=== PATIENT | female | born 1945 | race Caucasian/White ===

== ENCOUNTER → 2018-05-25 | Outpatient (CLI) | payer MEDICARE, OTHER ==
[~2018-05-25] MED LIST: ACET325; ASPI81CH PO; Acetaminophen325 M1 PO; IBUP400 PO; LOSA50 PO; Metformin HCl500 MG PO
[2018-05-25 14:54] LABS: Bun/Creatinine Ratio 12.7 (12.0-20.0); Calcium, Blood 9.7 mg/dL (8.5-10.1); Creatinine, Blood 1.18 mg/dL (0.40-1.00); Potassium, Blood 4.5 mmol/L (3.5-5.5)
== END | disposition home or self-care (01) ==
LOC: LAB SHORT 13:49 → LAB 13:49
PROVIDERS: Hospitalist
DX: E11.51 Type 2 diabetes mellitus with diabetic peripheral angiopathy without gangrene (principal); G93.41 Metabolic encephalopathy
CPT/HCPCS: 80048; 85651

== ENCOUNTER 2018-09-10 00:40 | Emergency (ER) | payer OTHER, MEDICARE ==
[~2018-09-10] VITALS: Ht 167.6 cm; Wt 81.7 kg
[2018-09-10 01:56] LABS: Albumin, Blood 3.1 g/dL (3.4-5.0); Bilirubin, Total 0.2 mg/dL (0.1-1.0); Calcium, Blood 9.1 mg/dL (8.5-10.1); Creatinine, Blood 1.94 mg/dL (0.40-1.00); Potassium, Blood 4.2 mmol/L (3.5-5.5); Total Protein, Blood 6.1 g/dL (6.4-8.2)
== END 2018-09-10 02:13 | disposition short-term general hospital (02) ==
LOC: ER 00:40
PROVIDERS: Emergency Medicine
DX: S02.2XXA Fracture of nasal bones, initial encounter for closed fracture (principal); S02.19XA Other fracture of base of skull, initial encounter for closed fracture; S02.40CA Maxillary fracture, right side, initial encounter for closed fracture; S02.40EA Zygomatic fracture, right side, initial encounter for closed fracture; S01.01XA Laceration without foreign body of scalp, initial encounter; Z88.0 Allergy status to penicillin; Z79.899 Other long term (current) drug therapy; Z79.82 Long term (current) use of aspirin; Z79.84 Long term (current) use of oral hypoglycemic drugs; V49.9XXA Car occupant (driver) (passenger) injured in unspecified traffic accident, initial encounter
CPT/HCPCS: 12006; 36415; 70450; 70486; 71260; 72125; 74177; 80053; 96374-59; 96375-59; 99285-25; J1170; J2405; J7030; Q9967

== ENCOUNTER 2018-09-23 14:44 | Emergency (ER) | payer MEDICARE, OTHER ==
[~2018-09-23] VITALS: Ht 167.6 cm; Wt 99.8 kg
[2018-09-23 14:59] LABS: Source, Urine Catheter
[2018-09-23 15:04] LABS: Bilirubin, Urine Neg (Neg); Blood, Urine 5+ (Neg); Glucose Qualitative, Urine Neg (Neg); Ketones, Urine 2+ (Neg); Leukocyte Esterase, Urine 3+ (Neg); Nitrite, Urine Pos (Neg); Protein, Urine 3+ (Neg); Urobilinogen, Urine NORM (Normal)
[2018-09-23 15:10] LABS: Appearance, Urine Cloudy (Clear); Color, Urine Yellow (P-Yellow); White Blood Cells, Urine TNTC /hpf (0-5)
[2018-09-23 15:11] LABS: Red Blood Cells, Urine 50-100 /hpf (0-2)
[2018-09-23 15:12] LABS: Bacteria Mod /hpf; Squamous Epithelial Cells Not Seen /hpf (Few)
[2018-09-23] MEDS ORDERED: CEFP200 PO (15:23)
== END 2018-09-23 15:58 | disposition home or self-care (01) ==
LOC: ER 14:44
PROVIDERS: Emergency Medicine
DX: N39.0 Urinary tract infection, site not specified (principal); R33.9 Retention of urine, unspecified; Z79.899 Other long term (current) drug therapy; Z79.82 Long term (current) use of aspirin; Z79.84 Long term (current) use of oral hypoglycemic drugs
CPT/HCPCS: 51702; 81001; 87077; 87086; 87186; 99284; A9270-GY

== ENCOUNTER 2018-10-22 22:42 | Emergency (ER) | payer OTHER, MEDICARE ==
[~2018-10-22] VITALS: Ht 167.6 cm; Wt 90.7 kg
[~2018-10-22 22:42] MED LIST changes: +CEFP200 PO
[2018-10-23] MEDS ORDERED: Ocuflox5 ML RIGHTEYE (01:25)
[2018-10-23] MEDS ORDERED: Cleocin HCl150 MG PO (01:25)
== END 2018-10-23 02:15 | disposition home or self-care (01) ==
LOC: ER 22:42
DX: J34.0 Abscess, furuncle and carbuncle of nose (principal); Z88.0 Allergy status to penicillin; Z88.2 Allergy status to sulfonamides; Z88.1 Allergy status to other antibiotic agents; Z79.899 Other long term (current) drug therapy; Z79.82 Long term (current) use of aspirin; E11.9 Type 2 diabetes mellitus without complications; Z79.84 Long term (current) use of oral hypoglycemic drugs
CPT/HCPCS: 70450; 70486; 99283-25

== ENCOUNTER → 2018-12-21 | Outpatient (CLI) | payer MEDICARE, OTHER ==
[~2018-12-21] MED LIST changes: +Cleocin HCl150 MG PO; +Ocuflox5 ML RIGHTEYE
[2018-12-21 18:39] LABS: International Normalized Ratio 0.94
[2018-12-21 19:04] LABS: BASOPHILS ABSOLUTE AUTO 0.05 K/mm3 (0.00-0.23); BASOPHILS PERCENT AUTO 1 % (0-2); EOSINOPHILS ABSOLUTE AUTO 0.09 K/mm3 (0.00-0.68); EOSINOPHILS PERCENT AUTO 1 % (0-6); Hematocrit 37.5 % (33.0-51.0); Hemoglobin 12.8 g/dL (11.5-16.0); IMMATURE GRAN ABSOLUTE AUTO 0.06 K/mm3 (0.00-0.10); IMMATURE GRAN PERCENT AUTO 1 % (0-1); LYMPHOCYTES ABSOLUTE AUTO 2.79 K/mm3 (0.84-5.20); LYMPHOCYTES PERCENT AUTO 26 % (21-46); MONOCYTES ABSOLUTE AUTO 0.65 K/mm3 (0.16-1.47); MONOCYTES PERCENT AUTO 6 % (4-13); Mean Corpuscular HGB 29.7 pg (26.0-34.0); Mean Corpuscular HGB Conc 34.1 g/dL (31.5-36.5); Mean Corpuscular Volume 87 fL (80-100); Mean Platelet Volume 10.5 fL (9.1-12.4); NEUTROPHILS ABSOLUTE AUTO 7.04 K/mm3 (1.96-9.15); NEUTROPHILS PERCENT AUTO 66 % (41-73); Platelet Count 285 K/mm3 (150-400); RDW Coefficient Variation 13.7 % (11.7-14.2); RDW Standard Deviation 43.8 fL (35.1-46.3); Red Blood Cell Count 4.31 M/mm3 (3.80-5.20); White Blood Cell Count 10.68 K/mm3 (4.00-11.30)
[2018-12-21 19:23] LABS: Alanine Aminotransfer (ALT/SGP 13 U/L (12-78); Albumin, Blood 3.6 g/dL (3.4-5.0); Alk Phos 106 U/L (50-136); Anion Gap 10 mmol/L (6-16); Aspartate Aminotrans (AST/SGOT 12 U/L (12-37); Bilirubin, Total 0.5 mg/dL (0.1-1.0); Blood Urea Nitrogen 29 mg/dL (8-24); Bun/Creatinine Ratio 20.7 (12.0-20.0); CHOL/HDL RATIO 4.2; CO2, Blood 24 mmol/L (21-32); Calcium, Blood 10.6 mg/dL (8.5-10.1); Chloride, Blood 102 mmol/L (98-108); Cholesterol 255 mg/dL (50-200); Globulin, Blood 3.5 g/dL (2.2-4.0); Glomerular Filtration Rate 39 (60-); Glucose, Blood 188 mg/dL (70-99); HDL Cholesterol 61 mg/dL (>39); LDL/HDL RATIO 2.5; Low Density Lipoprotein Chol 151 mg/dL (0-110); Sodium, Blood 136 mmol/L (136-145); Total Protein, Blood 7.1 g/dL (6.4-8.2); Triglycerides 216 mg/dL (30-160); Very Low Density Lipoprot Chol 43 mg/dL (6-32)
== END | disposition home or self-care (01) ==
LOC: LAB 16:57 → LAB SHORT 16:57
PROVIDERS: Hospitalist
DX: E11.51 Type 2 diabetes mellitus with diabetic peripheral angiopathy without gangrene (principal); E78.5 Hyperlipidemia, unspecified; I10 Essential (primary) hypertension
CPT/HCPCS: 80053; 80061; 83036; 85025; 85610

== ENCOUNTER → 2019-01-01 | Outpatient (CLI) | payer MEDICARE, OTHER ==
[2019-01-01 16:32] LABS: Bilirubin, Urine Neg (Neg); Blood, Urine 1+ (Neg); Glucose Qualitative, Urine Neg (Neg); Ketones, Urine Neg (Neg); Leukocyte Esterase, Urine 3+ (Neg); Nitrite, Urine Neg (Neg); Protein, Urine 2+ (Neg); Urobilinogen, Urine NORM (Normal)
[2019-01-01 16:45] LABS: Appearance, Urine Cloudy (Clear); Color, Urine Yellow (P-Yellow)
[2019-01-01 16:47] LABS: Squamous Epithelial Cells Few /hpf (Few); Triple Phosphate Crystals Few /hpf; White Blood Cells, Urine 50-100 /hpf (0-5)
[2019-01-01 16:48] LABS: Bacteria Many /hpf; Transitional Epithelial Cells Few /hpf (0-Rare)
== END | disposition home or self-care (01) ==
LOC: LAB SHORT 15:34 → OLS 15:34 → LAB FUT 01-02 10:35
PROVIDERS: Hospitalist
DX: N39.0 Urinary tract infection, site not specified (principal)
CPT/HCPCS: 81001; 87086

== ENCOUNTER → 2019-02-08 | Outpatient (CLI) | payer MEDICARE, OTHER ==
[2019-02-08 16:10] LABS: Bilirubin, Urine Neg (Neg); Blood, Urine 1+ (Neg); Glucose Qualitative, Urine Neg (Neg); Ketones, Urine Neg (Neg); Leukocyte Esterase, Urine 2+ (Neg); Nitrite, Urine Neg (Neg); Protein, Urine 1+ (Neg); Urobilinogen, Urine NORM (Normal)
[2019-02-08 16:42] LABS: Appearance, Urine Cloudy (Clear); Color, Urine Yellow (P-Yellow)
[2019-02-08 16:46] LABS: Red Blood Cells, Urine Rare /hpf (0-2)
[2019-02-08 16:47] LABS: Bacteria Many /hpf; Squamous Epithelial Cells Few /hpf (Few); Transitional Epithelial Cells Rare /hpf (0-Rare); Triple Phosphate Crystals Many /hpf
== END | disposition home or self-care (01) ==
LOC: OLS 13:36 → LAB SHORT 13:36
PROVIDERS: Hospitalist
DX: N39.0 Urinary tract infection, site not specified (principal)
CPT/HCPCS: 81001; 87086

== ENCOUNTER → 2019-02-14 | Outpatient (CLI) | payer MEDICARE, OTHER ==
[2019-02-14 18:08] LABS: Source, Urine Catheter
[2019-02-14 19:20] LABS: Bilirubin, Urine Neg (Neg); Blood, Urine 3+ (Neg); Glucose Qualitative, Urine Neg (Neg); Ketones, Urine 1+ (Neg); Leukocyte Esterase, Urine 3+ (Neg); Nitrite, Urine Neg (Neg); Protein, Urine 2+ (Neg); Specific Gravity, Urine 1.015 (1.003-1.022); Urobilinogen, Urine NORM (Normal)
[2019-02-14 19:26] LABS: Appearance, Urine Hazy (Clear); Color, Urine Yellow (P-Yellow)
[2019-02-14 19:29] LABS: Bacteria Many /hpf; Mucus Light (0-Heavy); Squamous Epithelial Cells Few /hpf (Few); White Blood Cells, Urine 25-50 /hpf (0-5)
== END ==
LOC: LAB SHORT 18:07 → OLS 18:07
PROVIDERS: Hospitalist
DX: Z46.6 Encounter for fitting and adjustment of urinary device (principal); N39.0 Urinary tract infection, site not specified; R33.9 Retention of urine, unspecified
CPT/HCPCS: 81001; 87077; 87086; 87186

== ENCOUNTER → 2019-12-29 | Outpatient (CLI) | payer MEDICARE, OTHER | END | disposition home or self-care (01) | LOC: LAB SHORT 12:14 → OLS 12:14 | DX: E11.51 Type 2 diabetes mellitus with diabetic peripheral angiopathy without gangrene (principal) | CPT/HCPCS: 82043 ==

== ENCOUNTER → 2023-01-20 | Outpatient (CLI) | payer MEDICARE, OTHER ==
[2023-01-20 20:23] LABS: Albumin, Blood 0.1 g/dL (3.4-5.0); Bilirubin, Total 0.5 mg/dL (0.1-1.0); Bun/Creatinine Ratio 12.9 (12.0-20.0); Creatinine, Blood 1.24 mg/dL (0.40-1.00); Globulin, Blood 7.1 g/dL (2.2-4.0); Total Protein, Blood 7.2 g/dL (6.4-8.2)
[2023-01-24 15:06] LABS: CHOL/HDL RATIO 1.6; Cholesterol 121 mg/dL (50-200); HDL Cholesterol 77 mg/dL (>39); LDL/HDL RATIO 0.3; Low Density Lipoprotein Chol 24 mg/dL (0-110); Triglycerides 98 mg/dL (30-160); Very Low Density Lipoprot Chol 19 mg/dL (6-32)
== END ==
LOC: LAB SHORT 15:43 → LAB 15:43
PROVIDERS: Hospitalist
DX: E11.51 Type 2 diabetes mellitus with diabetic peripheral angiopathy without gangrene (principal)
CPT/HCPCS: 80053; 80061

== ENCOUNTER → 2023-01-25 | Outpatient (CLI) | payer MEDICARE, OTHER ==
[2023-01-25 16:37] LABS: BASOPHILS ABSOLUTE AUTO 0.04 K/mm3 (0.00-0.23); BASOPHILS PERCENT AUTO 1 % (0-2); EOSINOPHILS ABSOLUTE AUTO 0.17 K/mm3 (0.00-0.68); EOSINOPHILS PERCENT AUTO 3 % (0-6); Hematocrit 37.7 % (33.0-51.0); Hemoglobin 12.5 g/dL (11.5-16.0); IMMATURE GRAN ABSOLUTE AUTO 0.01 K/mm3 (0.00-0.10); IMMATURE GRAN PERCENT AUTO 0 % (0-1); LYMPHOCYTES ABSOLUTE AUTO 2.57 K/mm3 (0.84-5.20); LYMPHOCYTES PERCENT AUTO 48 % (21-46); MONOCYTES ABSOLUTE AUTO 0.52 K/mm3 (0.16-1.47); MONOCYTES PERCENT AUTO 10 % (4-13); Mean Corpuscular HGB 30.8 pg (26.0-34.0); Mean Corpuscular HGB Conc 33.2 g/dL (31.5-36.5); Mean Corpuscular Volume 93 fL (80-100); Mean Platelet Volume 11.3 fL (9.1-12.4); NEUTROPHILS ABSOLUTE AUTO 2.07 K/mm3 (1.96-9.15); NEUTROPHILS PERCENT AUTO 38 % (41-73); Platelet Count 217 K/mm3 (150-400); RDW Coefficient Variation 14.5 % (11.7-14.2); RDW Standard Deviation 49.3 fL (35.1-46.3); Red Blood Cell Count 4.06 M/mm3 (3.80-5.20); White Blood Cell Count 5.38 K/mm3 (4.00-11.30)
== END | disposition home or self-care (01) ==
LOC: LAB 11:15 → LAB SHORT 11:15
PROVIDERS: Hospitalist
DX: E11.51 Type 2 diabetes mellitus with diabetic peripheral angiopathy without gangrene (principal); I11.0 Hypertensive heart disease with heart failure; I50.9 Heart failure, unspecified
CPT/HCPCS: 83036; 85025

== ENCOUNTER → 2023-04-15 | Outpatient (CLI) | payer MEDICARE, OTHER ==
[2023-04-15 17:21] LABS: Source, Urine Voided
[2023-04-15 18:48] LABS: Bilirubin, Urine Neg (Neg); Blood, Urine 3+ (Neg); Color, Urine Yellow (P-Yellow); Glucose Qualitative, Urine Neg (Neg); Ketones, Urine Neg (Neg); Leukocyte Esterase, Urine 2+ (Neg); Nitrite, Urine Neg (Neg); Protein, Urine Neg (Neg); Urobilinogen, Urine NORM (Normal)
[2023-04-15 18:55] LABS: Appearance, Urine Hazy (Clear)
[2023-04-15 18:56] LABS: Amorphous Light (0-Heavy); Bacteria Many /hpf; Mucus Light (0-Heavy); Squamous Epithelial Cells Mod /hpf (Few)
== END | disposition home or self-care (01) ==
LOC: LAB SHORT 17:11 → LAB 17:11
PROVIDERS: Hospitalist
DX: R41.82 Altered mental status, unspecified (principal)
CPT/HCPCS: 81001; 87086

== ENCOUNTER 2023-05-13 20:53 | Emergency (ER) | payer MEDICARE, OTHER ==
[~2023-05-13] VITALS: Ht 172.7 cm; Wt 90.7 kg
[2023-05-13] MEDS ORDERED: GABA300 PO (21:06)
[2023-05-13] MEDS ORDERED: METF500 PO (21:06)
[2023-05-13] MEDS ORDERED: ATOR20 PO (21:06)
[2023-05-13] MEDS ORDERED: SERT50 PO (21:06)
[2023-05-13] MEDS ORDERED: GLIM2 PO (21:06)
[2023-05-13 22:10] LABS: Influenza A, PCR NEGATIVE (NEGATIVE); Influenza B, PCR NEGATIVE (NEGATIVE); Resp Syncytial Virus, PCR NEGATIVE (NEGATIVE); SARS-Cov-2 (COVID-19) PCR, MMC NEGATIVE (NEGATIVE)
[2023-05-13 23:59] VITALS: BP 174/87
== END 2023-05-14 00:45 | disposition home or self-care (01) ==
LOC: ER 20:53
PROVIDERS: Emergency Medicine
DX: J02.9 Acute pharyngitis, unspecified (principal); F03.90 Unspecified dementia, unspecified severity, without behavioral disturbance, psychotic disturbance, mood disturbance, and anxiety; Z88.0 Allergy status to penicillin; Z88.2 Allergy status to sulfonamides; Z88.1 Allergy status to other antibiotic agents; Z79.899 Other long term (current) drug therapy; Z79.84 Long term (current) use of oral hypoglycemic drugs; E11.9 Type 2 diabetes mellitus without complications
CPT/HCPCS: 0241U; 87081; 87430; 99283

== ENCOUNTER → 2023-05-17 | Outpatient (CLI) | payer MEDICARE, OTHER ==
[~2023-05-17] MED LIST changes: +ATOR20 PO; +GABA300 PO; +GLIM2 PO; +METF500 PO; +SERT50 PO
[2023-05-18 15:59] LABS: BASOPHILS ABSOLUTE AUTO 0.04 K/mm3 (0.00-0.23); BASOPHILS PERCENT AUTO 1 % (0-2); EOSINOPHILS ABSOLUTE AUTO 0.16 K/mm3 (0.00-0.68); EOSINOPHILS PERCENT AUTO 3 % (0-6); Hematocrit 39.7 % (33.0-51.0); Hemoglobin 13.8 g/dL (11.5-16.0); IMMATURE GRAN ABSOLUTE AUTO 0.01 K/mm3 (0.00-0.10); IMMATURE GRAN PERCENT AUTO 0 % (0-1); LYMPHOCYTES ABSOLUTE AUTO 2.07 K/mm3 (0.84-5.20); LYMPHOCYTES PERCENT AUTO 34 % (21-46); MONOCYTES ABSOLUTE AUTO 0.46 K/mm3 (0.16-1.47); MONOCYTES PERCENT AUTO 8 % (4-13); Mean Corpuscular HGB 32.2 pg (26.0-34.0); Mean Corpuscular HGB Conc 34.8 g/dL (31.5-36.5); Mean Corpuscular Volume 93 fL (80-100); Mean Platelet Volume 12.4 fL (9.1-12.4); NEUTROPHILS ABSOLUTE AUTO 3.39 K/mm3 (1.96-9.15); NEUTROPHILS PERCENT AUTO 55 % (41-73); Platelet Count 218 K/mm3 (150-400); RDW Coefficient Variation 14.9 % (11.7-14.2); RDW Standard Deviation 49.4 fL (35.1-46.3); Red Blood Cell Count 4.29 M/mm3 (3.80-5.20); White Blood Cell Count 6.13 K/mm3 (4.00-11.30)
[2023-05-18 16:05] LABS: Magnesium, Blood 1.7 mg/dL (1.6-2.4)
[2023-05-18 16:06] LABS: Albumin, Blood 3.6 g/dL (3.4-5.0); Albumin/Globulin Ratio 1.2 (0.8-1.8); Bilirubin, Total 0.6 mg/dL (0.1-1.0); Calcium, Blood 10.4 mg/dL (8.5-10.1); Creatinine, Blood 1.1 mg/dL (0.40-1.00); Total Protein, Blood 6.6 g/dL (6.4-8.2)
== END | disposition home or self-care (01) ==
LOC: LAB SHORT 17:15
PROVIDERS: Hospitalist
DX: E11.51 Type 2 diabetes mellitus with diabetic peripheral angiopathy without gangrene (principal); F02.B18 Dementia in other diseases classified elsewhere, moderate, with other behavioral disturbance
CPT/HCPCS: 80053; 83036; 83735; 85025